=== PATIENT | female | born 1985 ===

== ENCOUNTER 2019-04-16 13:00 | Inpatient (IN) | payer OTHER ==
[~2019-04-16] VITALS: Ht 152.4 cm; Wt 56.7 kg
[2019-04-26] MEDS ORDERED: PRENATAL TABLE1 EAC1 PO (07:27)
[2019-04-26] MEDS ORDERED: SYNTHROID50 MCG PO (07:28)
[2019-04-28] MEDS ORDERED: FUSION PLUS CA1 EACH PO (14:39)
== END 2019-04-28 14:52 | disposition home or self-care (01) | DRG 807 ==
LOC: OB/GYN 04-25 13:00 → LDR 04-26 06:10 → OB/GYN 04-26 14:29
PROVIDERS: ADMIT Specialist
PROC: 10E0XZZ Delivery of Products of Conception, External Approach (ICD-10-PCS; principal; 2019-04-26)
PROC: 0HQ9XZZ Repair Perineum Skin, External Approach (ICD-10-PCS; 2019-04-26)
PROC: 3E033VJ Introduction of Other Hormone into Peripheral Vein, Percutaneous Approach (ICD-10-PCS; 2019-04-26)
PROC: 10907ZC Drainage of Amniotic Fluid, Therapeutic from Products of Conception, Via Natural or Artificial Opening (ICD-10-PCS; 2019-04-26)
PROC: 4A1HXCZ Monitoring of Products of Conception, Cardiac Rate, External Approach (ICD-10-PCS; 2019-04-26)
DX: O70.0 First degree perineal laceration during delivery (principal); Z37.0 Single live birth; Z3A.40 40 weeks gestation of pregnancy